=== PATIENT | female | born 2005 | race Caucasian/White ===

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

== ENCOUNTER 2024-06-22 13:07 | Emergency (ER) | payer OTHER ==
[~2024-06-22] VITALS: Ht 170.1 cm; Wt 98.0 kg
[2024-06-22] MEDS ORDERED: diphenhydrAMINE hydrochloride 50 MG/ML VIAL IV ONE (13:20)
[2024-06-22] MEDS ORDERED: SODIUM CHLORIDE 0.9% 1,000 ML IV ONE (13:20)
[2024-06-22] MEDS ORDERED: Metoclopramide Hydrochloride 10 MG/2 ML VIAL IV ONE (13:20)
[2024-06-22] MEDS ORDERED: Ketorolac Tromethamine 15 MG/ML VIAL IV ONE (13:20)
[2024-06-22 13:58] LABS: BASO % 0.1 % (0.0-1.0); HEMATOCRIT 31.9 % (37.0-47.0); MEAN CELL VOLUME 69.8 fl (81.0-99.0); MEAN CORPUSCULAR HGB 22.5 pg (27.0-31.0); MEAN CORPUSCULAR HGB CONC 32.3 g/dl (33.0-37.0); MEAN PLATELET VOLUME 9.5 fl (9.6-12.3); MONO # 0.5 10*3/uL (0.1-1.0); MONO % 3.4 % (3.0-9.0); NEUT # 11.7 10*3/uL (2.3-7.9); NEUT % 87.1 % (47.0-73.0); PLATELET COUNT AUTOMATED 453 10*3/uL (130-400); RED BLOOD COUNT 4.57 10*6/uL (4.10-5.10); RED CELL DISTRI WIDTH 20.1 % (0-14.5); WHITE BLOOD COUNT 13.4 10*3/uL (4.8-10.8)
[2024-06-22 14:49] LABS: BUN 11 mg/dl (9-23); CHLORIDE 105 mmol/L (98-107); POTASSIUM 3.7 mmol/L (3.4-5.1)
[2024-06-22 15:02] LABS: BILIRUBIN Negative (Negative); BLOOD Negative (Negative); CLARITY Clear (Clear); COLOR Dark Yellow (Yellow); GLUCOSE Negative (Negative); KETONE Trace (Negative); LEUKO ESTERASE 1+ (Negative); NITRITE Negative (Negative); PH 5.5 (4.5-8.0); SPECIFIC GRAVITY >= 1.030 (1.001-1.030)
[2024-06-22 15:10] LABS: B-hCG (QUALITATIVE) NEGATIVE (NEGATIVE)
[2024-06-22 15:28] LABS: BACTERIA 2+
[2024-06-22] MEDS ORDERED: cefTRIAXone Sodium 1 GM/10 ML SYR IV ONE (15:40)
[2024-06-22] MEDS ORDERED: Ondansetron4 MG PO (15:44)
[2024-06-22] MEDS ORDERED: CIPRO500 MG PO (15:44)
[2024-06-22] MEDS ORDERED: ACETAMINOPHEN 325 MG TAB PO ONE (15:45)
== END 2024-06-22 16:55 | disposition home or self-care (01) ==
LOC: ED 13:07
PROVIDERS: Emergency Medicine
DX: R11.2 Nausea with vomiting, unspecified (principal); Z20.822 Contact with and (suspected) exposure to COVID-19; M79.10 Myalgia, unspecified site; N39.0 Urinary tract infection, site not specified

== ENCOUNTER 2024-12-16 22:51 | Emergency (ER) | payer BC, OTHER ==
[~2024-12-16] VITALS: Ht 160 cm; Wt 98.0 kg
[~2024-12-16 22:51] MED LIST changes: +CIPRO500 MG PO; +Ondansetron4 MG PO
[2024-12-16] MEDS ORDERED: PENICILLIN V POTASSIUM 500 MG TAB PO ONE (23:40)
[2024-12-16] MEDS ORDERED: Acetaminophen/Hydrocodone 5 MG/325 MG TABLET PO ONE (23:40)
[2024-12-16] MEDS ORDERED: Ondansetron Hydrochloride 4 MG TAB SL ONE (23:40)
[2024-12-16] MEDS ORDERED: PENICILLIN VK500 MG PO (23:44)
== END 2024-12-17 | disposition home or self-care (01) ==
LOC: ED 22:51
DX: K02.9 Dental caries, unspecified (principal); Z79.899 Other long term (current) drug therapy